=== PATIENT | female | born 1990 | race Caucasian/White ===

== ENCOUNTER 2017-02-20 21:15 | Emergency (ER) | payer BC, OTHER ==
[2017-02-20] MEDS ORDERED: SODIUM CHLORIDE 0.9% 1,000 ML IV STA (21:22)
[2017-02-20] MEDS ORDERED: ONDANSETRON 4 MG/2 ML VIAL IVP STA (21:23)
[2017-02-20 21:25] VITALS: RESP 18
--- NOTE | 2017-02-20 21:25 | ED ---
General Adult HPI - General Stated complaint: Seizure Time Seen by Provider: 02/20/17 21:15 Source: RN notes reviewed - History of Present Illness Initial comments: This is a 26-year-old female with past medical history significant for one seizure 8 years ago. According to the mother the patient got home from work and told her she wasn't feeling well and she went to lay down the couch and then she had a seizure that lasted about 30 seconds. Mom states it took a while for her to the back to her baseline which was when they were in route to the hospital. Patient currently states she has a mild headache she is also very nauseated. Patient states she knows she was feeling fine yesterday and feels otherwise fine today. Patient denies any recent fever chills or cough. Patient denies any chest pain palpitations difficulty breathing shortest breath. Patient denies any abdominal pain. Patient denies any actual vomiting or diarrhea. Patient denies any dysuria hematuria urinary frequency. Patient denies any excessive caffeine intake or energy drinks. Patient denies any illegal drug use. Patient states it's possible she is . - Related Data Home Medications Medication Instructions Recorded Confirmed No Known Home Medications [No 02/20/17 02/20/17 Known Home Medications] Allergies Allergy/AdvReac Type Severity Reaction Status Date / Time acetaminophen AdvReac Nausea & Verified 02/20/17 21:54 [From Tylenol-Codeine] Vomiting codeine AdvReac Nausea & Verified 02/20/17 21:54 [From Tylenol-Codeine] Vomiting Review of Systems ROS Statement: Those systems with pertinent positive or pertinent negative responses have been documented in the HPI. ROS Other: All systems not noted in ROS Statement are negative. General Exam - General Exam Comments Initial Comments: GENERAL: Patient is well-developed and well-nourished. Patient is nontoxic and well- hydrated and is in mild distress. ENT: Neck is soft and supple. No significant lymphadenopathy is noted. Oropharynx is clear. Moist mucous membranes. EYES: The sclera were anicteric and conjunctiva were pink and moist. Extraocular movements were intact and pupils were equal round and reactive to light. Eyelids were unremarkable. PULMONARY: Unlabored respirations. Good breath sounds bilaterally. No audible rales rhonchi or wheezing was noted. CARDIOVASCULAR: There is a regular rate and rhythm without any murmurs gallops or rubs. ABDOMEN: Soft and nontender with normal bowel sounds. No palpable organomegaly was noted. There is no palpable pulsatile mass. SKIN: Skin is clear with no lesions or rashes and otherwise unremarkable. NEUROLOGIC: Patient is alert and oriented x3. Cranial nerves II through XII are grossly intact. Motor and sensory are also intact. Normal speech, volume and content. Symmetrical smile. MUSCULOSKELETAL: Normal extremities with adequate strength and full range of motion. No lower extremity swelling or edema. No calf tenderness. LYMPHATICS: No significant lymphadenopathy is noted PSYCHIATRIC: Normal psychiatric evaluation. Normal interpersonal interactions appears functionally intact in deals appropriately with others. No signs of depression. Patient is mildly anxious Course Vital Signs 02/20/17 02/20/17 02/20/17 21:18 22:05 22:48 Temperature 99.0 F Pulse Rate 98 81 76 Respiratory 18 18 18 Rate Blood Pressure 123/71 117/73 114/70 O2 Sat by Pulse 97 100 97 Oximetry Medical Decision Making - Medical Decision Making EKG shows normal sinus rhythm at 80 bpm HI interval 160 QRS is 102 QT interval 386 QTC is 467 per patient's EKG shows no ST segment elevation or depression or T wave abnormalities are noted. CT of the brain shows no acute abnormality. - Lab Data Result diagrams: 02/20/17 21:30 02/20/17 21:30 Lab Results 02/20/17 02/20/17 02/20/17 Range/Units 21:30 21:30 22:05 WBC 4.7 (3.8-10.6) k/uL RBC 4.27 (3.80-5.40) m/uL Hgb 11.6 (11.4-16.0) gm/dL Hct 36.5 (34.0-46.0) % MCV 85.6 (80.0-100.0) fL MCH 27.3 (25.0-35.0) pg MCHC 31.9 (31.0-37.0) g/dL RDW 13.9 (11.5-15.5) % Plt Count 208 (150-450) k/uL Neutrophils % 54 % Lymphocytes % 38 % Monocytes % 5 % Eosinophils % 1 % Basophils % 1 % Neutrophils # 2.5 (1.3-7.7) k/uL Lymphocytes # 1.8 (1.0-4.8) k/uL Monocytes # 0.2 (0-1.0) k/uL Eosinophils # 0.1 (0-0.7) k/uL Basophils # 0.0 (0-0.2) k/uL Sodium 142 (137-145) mmol/L Potassium 3.8 (3.5-5.1) mmol/L Chloride 108 H (98-107) mmol/L Carbon Dioxide 23 (22-30) mmol/L Anion Gap 11 mmol/L BUN 11 (7-17) mg/dL Creatinine 0.70 (0.52-1.04) mg/dL Est GFR (MDRD) Af Amer >60 (>60 ml/min/1.73 sqM) Est GFR (MDRD) Non-Af >60 (>60 ml/min/1.73 sqM) Glucose 97 (74-99) mg/dL Calcium 8.8 (8.4-10.2) mg/dL Total Bilirubin 0.2 (0.2-1.3) mg/dL AST 17 (14-36) U/L ALT 28 (9-52) U/L Alkaline Phosphatase 63 (38-126) U/L Total Protein 6.7 (6.3-8.2) g/dL Albumin 3.9 (3.5-5.0) g/dL Urine Color Light Yellow Urine Appearance Clear (Clear) Urine pH 5.5 (5.0-8.0) Ur Specific [place] 1.013 (1.001-1.035) Urine Protein Negative (Negative) Urine Glucose (UA) Negative (Negative) Urine Ketones Trace H (Negative) Urine Blood Negative (Negative) Urine Nitrite Negative (Negative) Urine Bilirubin Negative (Negative) Urine Urobilinogen <2.0 (<2.0) mg/dL Ur Leukocyte Esterase Negative (Negative) Urine Opiates Screen Not Detected (NotDetected) Ur Oxycodone Screen Not Detected (NotDetected) Urine Methadone Screen Not Detected (NotDetected) Ur Propoxyphene Screen Not Detected (NotDetected) Ur Barbiturates Screen Not Detected (NotDetected) U Tricyclic Antidepress Not Detected (NotDetected) Ur Phencyclidine Scrn Not Detected (NotDetected) Ur Amphetamines Screen Not Detected (NotDetected) U Methamphetamines Scrn Not Detected (NotDetected) U Benzodiazepines Scrn Not Detected (NotDetected) Urine Cocaine Screen Not Detected (NotDetected) U Marijuana (THC) Screen Not Detected (NotDetected) Disposition Clinical Impression: Generalized seizure Disposition: HOME SELF-CARE Condition: Good Instructions: New-Onset Seizure in Adults (ED) Additional Instructions: Patient should follow-up with a neurologist as soon as possible Patient should not drive until cleared by a neurologist Referrals: Kem Khanna MD [Primary Care Provider] - 1-2 days Time of Disposition: 23:24
[2017-02-20 21:48] LABS: Basophils % (A) 1 %; CH 27.7; CHCM 32.5; Eosinophils # (A) 0.1 k/uL (0-0.7); Eosinophils % (A) 1 %; HCT 36.5 % (34.0-46.0); HDW 2.13; HGB 11.6 gm/dL (11.4-16.0); Luc # (Auto) 0.12; Luc % (Auto) 3; Lymphocytes # (A) 1.8 k/uL (1.0-4.8); Lymphocytes % (A) 38 %; MCH 27.3 pg (25.0-35.0); MCHC 31.9 g/dL (31.0-37.0); MCV 85.6 fL (80.0-100.0); Mean Platelet Volume 6.5; Monocytes # (A) 0.2 k/uL (0-1.0); Monocytes % (A) 5 %; Neutrophils # (A) 2.5 k/uL (1.3-7.7); Neutrophils % (A) 54 %; RBC 4.27 m/uL (3.80-5.40); RDW 13.9 % (11.5-15.5); WBC 4.7 k/uL (3.8-10.6); WBC (Perox) 4.81
[2017-02-20 21:59] LABS: ALT 28 U/L (9-52); AST 17 U/L (14-36); Alkaline Phosphatase 63 U/L (38-126); Anion Gap 11 mmol/L; Blood Urea Nitrogen 11 mg/dL (7-17); Calcium 8.8 mg/dL (8.4-10.2); Carbon Dioxide 23 mmol/L (22-30); Chloride 108 mmol/L (98-107); Glucose 97 mg/dL (74-99); Non-African American GFR(MDRD) >60 (>60 ml/min/1.73 sqM); Potassium 3.8 mmol/L (3.5-5.1); Sodium 142 mmol/L (137-145); Total Bilirubin 0.2 mg/dL (0.2-1.3); Total Protein 6.7 g/dL (6.3-8.2)
--- NOTE | 2017-02-20 22:18 | CT ---
EXAM: CT Head Without Intravenous Contrast CLINICAL HISTORY: Seizure TECHNIQUE: Axial computed tomography images of the head/brain without intravenous contrast. CTDI is 2.06, 2.05, 11.45 mGy and DLP is 946 mGy-cm. This CT exam was performed using one or more of the following dose reduction techniques: automated exposure control, adjustment of the mA and/or kV according to patient size, and/or use of iterative reconstruction technique. COMPARISON: No relevant prior studies available. FINDINGS: Brain: Unremarkable. No acute hemorrhage. Normal hart-white differentiation. No significant mass effect. Ventricles: Unremarkable. No ventriculomegaly. Bones/joints: Unremarkable. No acute fracture. Soft tissues: Unremarkable. Sinuses: Unremarkable as visualized. No acute sinusitis. Mastoid air cells: Unremarkable. IMPRESSION: No acute intracranial abnormality.
[2017-02-20 22:48] LABS: Appearance,Urine Clear (Clear); Bilirubin,Urine Negative (Negative); Glucose,Urine (UA) Negative (Negative); Ketones,Urine Trace (Negative); Leukocyte Esterase,Urine Negative (Negative); Nitrite,Urine Negative (Negative); PH, Urine 5.5 (5.0-8.0); Protein,Urine Negative (Negative); Specific Gravity,Urine 1.013 (1.001-1.035); UA Billing (MACRO vs. MICRO) CHEM; Urobilinogen,Urine <2.0 mg/dL (<2.0)
[2017-02-20] MEDS ORDERED: SODIUM CHLORIDE 0.9% 1,000 ML IV ONE (23:09)
[2017-02-20] MEDS ORDERED: SODIUM CHLORIDE 0.9% 500 ML IV ONE (23:09)
[2017-02-20 23:54] VITALS: BP 109/71; PULSE 73; TEMP 97.5
== END 2017-02-20 23:54 | disposition home or self-care (01) ==
LOC: EC 21:15
DX: G40.409 Other generalized epilepsy and epileptic syndromes, not intractable, without status epilepticus (principal); R11.0 Nausea; Z88.5 Allergy status to narcotic agent; Z88.6 Allergy status to analgesic agent
CPT/HCPCS: 36415; 93005; 80053; 85025; 81003; 81025; 80306; 70450; 99285; 96374; 96361 ×2; J2405

== ENCOUNTER 2022-12-27 05:59 | Inpatient (IN) | payer BC, OTHER ==
[2022-12-27] MEDS ORDERED: miSOPROStoL 200 MCG TAB PO PRN (06:30)
[2022-12-27] MEDS ORDERED: LACTATED RINGERS 1,000 ML IV SCH (06:30)
[2022-12-27] MEDS ORDERED: TRANEXAMIC ACID IN NACL,ISO-OS 1,000 MG in EMPTY BAG 1 BAG IV PRN (06:30)
[2022-12-27] MEDS ORDERED: OXYTOCIN 30 UNITS/500 ML NS 30 UNIT in SALINE 1 500ML.BAG IV SCH ×2 (06:30→14:15)
[2022-12-27] MEDS ORDERED: LIDOCAINE 0.5% (PF) 5 MG/ML (50 ML SDV) SQ PRN (06:30)
[2022-12-27] MEDS ORDERED: METHYLERGONOVINE 0.2 MG/ML 1 ML AMP IM PRN (06:30)
[2022-12-27] MEDS ORDERED: TERBUTALINE 1 MG/ML VIAL SQ PRN (06:30)
[2022-12-27] MEDS ORDERED: OXYTOCIN 10 UNIT/ML 1 ML VIAL IM PRN (06:30)
[2022-12-27] MEDS ORDERED: CARBOPROST TROMETHAMINE 250 MCG/ML 1 ML AMP IM PRN (06:30)
[2022-12-27 06:46] LABS: Anisocytosis Slight; Basophils % (A) 0 %; Eosinophils % (A) 0 %; HCT 29.2 % (34.0-46.0); HGB 8.8 gm/dL (11.4-16.0); Hypochromasia Marked; Lymphocytes # (A) 1.5 k/uL (1.0-4.8); Lymphocytes % (A) 25 %; MCV 66.7 fL (80.0-100.0); Mean Platelet Volume 6.8; Microcytosis Marked; Monocytes # (A) 0.3 k/uL (0-1.0); Monocytes % (A) 4 %; Neutrophils # (A) 3.9 k/uL (1.3-7.7); Neutrophils % (A) 68 %; Platelet Count 303 k/uL (150-450); Poikilocytosis Slight; RBC 4.38 m/uL (3.80-5.40); RDW 17.3 % (11.5-15.5); WBC 5.8 k/uL (3.8-10.6)
[2022-12-27] MEDS ORDERED: PENICILLIN G POTASSIUM 5,000,000 UNIT in DEXTROSE 5% IN WATER 100 ML IVPB STA ×2 (07:24)
--- NOTE | 2022-12-27 08:45 | P.HPOB ---
History of Present Illness H&P Date: 12/27/22 Chief Complaint: Elective induction of labor Ms. Lamar is a 32 year old at 39 weeks and 0 days with EDC of 01/03/2023 by 7 week who presents for elective induction of labor. is complicated by suspected LGA in the 92%ile at 36 weeks. This is also a short interval , with her last delivery in January of 2022. Obstetric history: 2 full term vaginal deliveries without complications, largest baby weighed 8 pounds 10 ounces. Maternal serologies: blood type O positive, antibody negative, rubella immune, VDRL non-reactive, HBsAg negative, HIV negative, 1 hour GTT 110, GBS positive. Past Medical History Past Medical History: Seizure Disorder Additional Past Medical History / Comment(s): 2017 One seizure. History of Any Multi-Drug Resistant Organisms: None Reported Additional Past Surgical History / Comment(s): Dental surgery Past Anesthesia/Blood Transfusion Reactions: No Reported Reaction Past Psychological History: No Psychological Hx Reported Smoking Status: Never smoker Past Alcohol Use History: Rare Past Drug Use History: None Reported - Past Family History Sister(s) Family Medical History: Diabetes Mellitus Medications and Allergies Home Medications Medication Instructions Recorded Confirmed Type No Known Home Medications 02/20/17 12/27/22 History Allergies Allergy/AdvReac Type Severity Reaction Status Date / Time codeine AdvReac Mild Nausea & Verified 12/27/22 06:30 [From Tylenol-Codeine] Vomiting acetaminophen AdvReac Nausea & Verified 02/20/17 21:54 [From Tylenol-Codeine] Vomiting Exam Vital Signs Temp Pulse Resp BP Pulse Ox 12/27/22 06:29 98.3 F 95 16 134/72 98 Intake and Output 12/26/22 12/27/22 12/27/22 22:59 06:59 14:59 Other: Weight 83.007 kg Focused physical exam is performed. This is a healthy-appearing multigravida in no apparent distress. Cervical exam is 5cm/70% effaced/-1 station. Category I heart tones. Results Result Diagrams: 12/27/22 06:25 Abnormal Lab Results - Last 24 Hours (Table) 12/27/22 Range/Units 06:25 Hgb 8.8 L (11.4-16.0) gm/dL Hct 29.2 L (34.0-46.0) % MCV 66.7 L (80.0-100.0) fL MCH 20.0 L (25.0-35.0) pg MCHC 30.0 L (31.0-37.0) g/dL RDW 17.3 H (11.5-15.5) % Assessment and Plan Assessment: 32 year old at 39 weeks and 0 days presenting for eIOL Plan: - Admit, oxytocin per protocol, PCN for GBS prophylaxis, mIVF, NPO, epidural prn. Time with Patient: Less than 30 (15 minutes)
[2022-12-27] MEDS ORDERED: PENICILLIN G POTASSIUM 2,500,000 UNIT in DEXTROSE 5% IN WATER 100 ML IVPB SCH ×2 (12:00)
[2022-12-27] MEDS ORDERED: diphenhydrAMINE 25 MG CAP PO PRN (14:02)
[2022-12-27] MEDS ORDERED: diphenhydrAMINE 50 MG CAP PO PRN (14:02)
[2022-12-27] MEDS ORDERED: HYDROCORTISONE 2.5% RECTAL CREAM 30 GM TUBE RECTAL PRN (14:02)
[2022-12-27] MEDS ORDERED: LANOLIN CREAM 5 GM TUBE TOPICAL PRN (14:02)
[2022-12-27] MEDS ORDERED: ACETAMINOPHEN TAB 325 MG TAB PO PRN (14:02)
[2022-12-27] MEDS ORDERED: SIMETHICONE 80 MG CHEWABLE PO PRN (14:02)
[2022-12-27] MEDS ORDERED: diphenhydrAMINE 50 MG/ML 1 ML VIAL IVP PRN ×2 (14:02)
[2022-12-27] MEDS ORDERED: ZOLPIDEM 5 MG TAB PO PRN (14:02)
[2022-12-27] MEDS ORDERED: BENZOCAINE/MENTHOL SPRAY 1 GM/SPRAY AEROSOL TOPICAL PRN (14:02)
--- NOTE | 2022-12-27 14:02 | P.PROBDLV ---
Vaginal Delivery Note - . Vaginal Delivery Note: DATE OF SERVICE: 12/27/2022 PROCEDURE: Normal Vaginal Delivery ATTENDING: Dr. Aniyah Murphy MD ESTIMATED BLOOD LOSS: 150 mL FINDINGS: VFI, Apgars 9/9, Weight 8 pounds and 14 ounces PROCEDURE: Patient was a 32 y/o at 39 weeks and 0 days who presented to labor and delivery for elective induction of labor. Oxytocin was started, penicillin was given for GBS prophylaxis. AROM was undertaken for clear fluid. The patient quickly progressed to complete dilation. Category I heart tones were noted throughout labor. The patient pushed once and head delivered without difficulty followed by shoulders and body over intact perineum. Infant placed on maternal abdomen and bulb suctioned. Cord was clamped and cut after a 30 second delay. Placenta delivered whole with gentle cord traction. Oxytocin was started to facilitate uterine tone. Uterine fundus firm and bleeding minimal upon fundal massage. Perineal inspection revealed a right-sided periurethral abrasion that was hemostatic, superficial, and did not require repair. Patient stable .
[2022-12-27] MEDS: IBUPROFEN 600 MG TAB PO PRN (14:41)
[2022-12-27] MEDS: SENNOSIDES-DOCUSATE SODIUM 1 EACH TAB PO SCH (19:39)
[2022-12-28 00:46] VITALS: RESP 16
[2022-12-28] MEDS: IBUPROFEN 600 MG TAB PO PRN (04:01)
[2022-12-28 06:09] LABS: Anisocytosis Slight; Basophils % (A) 0 %; Eosinophils % (A) 0 %; HCT 26.9 % (34.0-46.0); HGB 8.2 gm/dL (11.4-16.0); Hypochromasia Marked; Lymphocytes # (A) 1.8 k/uL (1.0-4.8); Lymphocytes % (A) 19 %; MCH 20.3 pg (25.0-35.0); MCHC 30.5 g/dL (31.0-37.0); MCV 66.7 fL (80.0-100.0); Microcytosis Marked; Monocytes # (A) 0.4 k/uL (0-1.0); Monocytes % (A) 4 %; Neutrophils # (A) 7.2 k/uL (1.3-7.7); Neutrophils % (A) 75 %; Platelet Count 290 k/uL (150-450); Poikilocytosis Slight; RBC 4.04 m/uL (3.80-5.40); RDW 17.1 % (11.5-15.5); WBC 9.6 k/uL (3.8-10.6)
--- NOTE | 2022-12-28 07:21 | P.PNOBGVD ---
Subjective - Subjective Principal diagnosis: s/p normal vaginal delivery Interval history: The patient is doing well this morning and had no acute events overnight. She has no complaints this morning. She reports minimal lochia, passing flatus, voiding without difficulty, ambulating, and eating/drinking without nausea or vomiting. She is her without difficulty. She denies chest pain, shortness of breathing, fevers, or chills overnight. She denies pain or swelling in the legs. Patient reports: Reports appetite normal, Reports voiding normally, Reports pain well controlled, Reports ambulating normally [place]: doing well, nursing well Objective - Latest Vital Signs Latest vital signs: Vital Signs Temp Pulse Resp BP Pulse Ox 12/28/22 00:00 97.9 F 70 16 115/70 98 12/27/22 20:00 98 F 87 18 119/77 98 12/27/22 15:55 97.8 F 62 17 120/74 12/27/22 14:55 71 17 117/74 12/27/22 14:40 54 L 17 119/72 12/27/22 14:25 77 17 130/68 12/27/22 14:10 77 17 143/74 12/27/22 13:55 98.8 F 80 17 131/66 Intake and Output 12/27/22 12/28/22 12/28/22 22:59 06:59 14:59 Output Total 130 Balance -130 Output: Output, Quantitative 130 Blood Loss Other: # Voids 1 - Exam Extremities: Present: normal Abdomen: Present: normal appearance, soft Uterus: Present: normal, firm - Labs Labs: Abnormal Lab Results - Last 24 Hours (Table) 12/28/22 Range/Units 05:33 Hgb 8.2 L (11.4-16.0) gm/dL Hct 26.9 L (34.0-46.0) % MCV 66.7 L (80.0-100.0) fL MCH 20.3 L (25.0-35.0) pg MCHC 30.5 L (31.0-37.0) g/dL RDW 17.1 H (11.5-15.5) % Assessment and Plan Assessment: 32 year old PPD#1 s/p normal vaginal delivery for viable female Plan: Patient meeting all milestones appropriately and desires discharge home today. Will discharge at 24 hours .
--- NOTE | 2022-12-28 07:24 | P.DS ---
Providers Date of admission: 12/27/22 05:59 Expected date of discharge: 12/28/22 Attending physician: Aniyah Murphy MD Primary care physician: Stated None Hospital Course: 32 year old now PPD#1 s/p normal vaginal delivery of viable female . She is meeting all milestones appropriately and had no acute events after delivery. She desires discharge home today. We discussed pelvic rest for 6 weeks . Her plans on having a vasectomy for contraception. I encouraged her to call the office for any heavy bleeding, foul-smelling vaginal discharge, breast complaints, fevers/chills, severe pain, or any other questions. She will return to the office in 6 weeks for her visit. All questions answered. Assessment: 32 yo now day #1 s/p normal vaginal delivery Patient Condition at Discharge: Good Plan - Discharge Summary Discharge Rx Participant: No New Discharge Prescriptions: No Action No Known Home Medications Discharge Medication List No Known Home Medications 02/20/17 [History] Follow up Appointment(s)/Referral(s): Aniyah Murphy MD [STAFF PHYSICIAN] - 6 Weeks Patient Instructions/Handouts: Your Baby (DC), and Nipple Soreness (DC), How to Increase Your Milk Supply (DC), How to Tell if Your Baby is Getting Enough Breast Milk (DC), Depression (DC), Perineal Care (DC), Bleeding (DC), Vaginal Delivery (DC) Activity/Diet/Wound Care/Special Instructions: Pelvic rest for 6 weeks. Otherwise, activity as tolerated. Discharge Disposition: HOME SELF-CARE
[2022-12-28 08:19] VITALS: BP 103/65; PULSE 72; TEMP 98.2
[2022-12-28] MEDS: SENNOSIDES-DOCUSATE SODIUM 1 EACH TAB PO SCH (12:27)
== END 2022-12-28 15:00 | disposition home or self-care (01) | DRG 807 ==
LOC: 4FBP 05:59
PROVIDERS: ADMIT Obstetrics & Gynecology; ATTEND Obstetrics & Gynecology
PROC: 10E0XZZ Delivery of Products of Conception, External Approach (ICD-10-PCS; principal; 2022-12-27)
PROC: 3E0DXGC Introduction of Other Therapeutic Substance into Mouth and Pharynx, External Approach (ICD-10-PCS; 2022-12-27)
PROC: 3E033VJ Introduction of Other Hormone into Peripheral Vein, Percutaneous Approach (ICD-10-PCS; 2022-12-27)
PROC: 10907ZC Drainage of Amniotic Fluid, Therapeutic from Products of Conception, Via Natural or Artificial Opening (ICD-10-PCS; 2022-12-27)
DX: O80 Encounter for full-term uncomplicated delivery (principal); Z37.0 Single live birth; Z3A.39 39 weeks gestation of pregnancy; Z28.310 Unvaccinated for COVID-19; Z86.69 Personal history of other diseases of the nervous system and sense organs; Z88.6 Allergy status to analgesic agent; Z88.5 Allergy status to narcotic agent
CPT/HCPCS: 85025; 86850; 86900; 86901

== ENCOUNTER 2024-07-12 18:19 | Inpatient (IN) | payer OTHER ==
[2024-07-12] MEDS ORDERED: LIDOCAINE 0.5% (PF) 5 MG/ML (50 ML SDV) SQ PRN (18:44)
[2024-07-12] MEDS ORDERED: TRANEXAMIC 1,000 MG/100ML-NACL 1,000 MG in EMPTY BAG 1 BAG IV PRN (18:44)
[2024-07-12] MEDS ORDERED: miSOPROStoL 200 MCG TAB RECTAL PRN (18:44)
[2024-07-12] MEDS ORDERED: miSOPROStoL 200 MCG TAB PO PRN (18:44)
[2024-07-12] MEDS ORDERED: TERBUTALINE 1 MG/ML VIAL SQ PRN (18:44)
[2024-07-12] MEDS ORDERED: OXYTOCIN 10 UNIT/ML 1 ML VIAL IM PRN (18:44)
[2024-07-12] MEDS ORDERED: CARBOPROST TROMETHAMINE 250 MCG/ML 1 ML AMP IM PRN (18:44)
[2024-07-12] MEDS ORDERED: METHYLERGONOVINE 0.2 MG/ML 1 ML AMP IM PRN (18:44)
[2024-07-12 19:12] LABS: Anisocytosis Moderate; Basophils % (A) 0 %; Eosinophils # (A) 0.1 k/uL (0-0.7); Eosinophils % (A) 1 %; HCT 34.8 % (34.0-46.0); HGB 10.7 gm/dL (11.4-16.0); Hypochromasia Moderate; Lymphocytes # (A) 1.4 k/uL (1.0-4.8); Lymphocytes % (A) 15 %; MCH 22.9 pg (25.0-35.0); MCHC 30.6 g/dL (31.0-37.0); MCV 74.8 fL (80.0-100.0); Mean Platelet Volume 7.8; Microcytosis Moderate; Monocytes # (A) 0.3 k/uL (0-1.0); Monocytes % (A) 3 %; Neutrophils # (A) 7.3 k/uL (1.3-7.7); Neutrophils % (A) 80 %; Platelet Count 250 k/uL (150-450); RBC 4.66 m/uL (3.80-5.40); WBC 9.2 k/uL (3.8-10.6)
[2024-07-12] MEDS: LACTATED RINGERS 1,000 ML IV SCH (19:20)
[2024-07-12] MEDS: OXYTOCIN 30 UNITS/500 ML NS 30 UNIT in SALINE 1 500ML.BAG IV SCH (20:00)
--- NOTE | 2024-07-12 21:36 | P.HPOB ---
History of Present Illness H&P Date: 07/12/24 Chief Complaint: 40-0/7 weeks, active labor Patient is a 34-year-old 4 para 3-0-0-3 admitted at 40-0/7 weeks as established by last menstrual period and confirmed by 11-week ultrasound. She is admitted in active labor with all signs reassuring, category 1 heart rate tracing. Her has been entirely uncomplicated and group B strep status is negative. Obstetrical history: 4 para 3-0-0-3 with 3 term vaginal deliveries without complications. Current statistics are listed in history of present illness. EDC of 07/12/2024 was established by last menstrual period and confirmed by 11-week ultrasound. Laboratory workup demonstrates a blood type of O+ with a negative antibody screen. Rubella status is immune. The remainder of the laboratory workup was within normal limits. Early Glucola as well as second trimester Glucola were within normal limits. Group B strep status is negative. Gynecologic history: Unremarkable with no history of any infections to include STDs. Review of Systems Review of systems is confined to history of present illness. Past Medical History Past Medical History: Seizure Disorder Additional Past Medical History / Comment(s): 2017 had a seizure, only time History of Any Multi-Drug Resistant Organisms: None Reported Additional Past Surgical History / Comment(s): oral surgery Past Anesthesia/Blood Transfusion Reactions: No Reported Reaction Smoking Status: Never smoker Past Alcohol Use History: None Reported Past Drug Use History: None Reported - Past Family History Father Family Medical History: Diabetes Mellitus, Hypertension Medications and Allergies Home Medications Medication Instructions Recorded Confirmed Type Ferrous Sulfate [Iron (65 MG 1 tab PO DAILY 07/03/24 07/12/24 History Elemental)] Vit No.179/Iron/Folic 1 tab PO DAILY 07/03/24 07/12/24 History [ Tablet] Allergies Allergy/AdvReac Type Severity Reaction Status Date / Time No Known Allergies Allergy Verified 07/12/24 18:27 Exam Vital Signs Temp Pulse Resp BP Pulse Ox 07/12/24 19:17 98.0 F 92 17 143/92 07/12/24 18:58 98.0 F 18 99 Intake and Output 07/12/24 07/12/24 07/12/24 06:59 14:59 22:59 Other: # Voids 2 Weight 88.904 kg In general, this is a well-developed, well-nourished white female in moderate discomfort as she is in active labor. Her heart has a regular rhythm and rate w ithout murmur. Her lungs are clear to auscultation bilateral in all mike. Her abdomen is gravid, nondistended, has normal active bowel sounds, soft, nontender, and without any palpable masses aside from the uterine fundus. Her extremities are without any cyanosis, clubbing, or edema and are nontender to palpation bilaterally. Digital cervical examination demonstrates her cervix to be approximately 8 cm dilated, 90% effaced, the vertex and presentation at -1-2 station. Artificial rupture of membranes is carried out demonstrating light to moderate meconium stained fluid. Results Result Diagrams: 07/12/24 19:02 Abnormal Lab Results - Last 24 Hours (Table) 07/12/24 Range/Units 19:02 Hgb 10.7 L (11.4-16.0) gm/dL MCV 74.8 L (80.0-100.0) fL MCH 22.9 L (25.0-35.0) pg MCHC 30.6 L (31.0-37.0) g/dL RDW 21.0 H (11.5-15.5) % Assessment and Plan (1) Meconium in amniotic fluid affecting management of mother Current Visit: No Status: Acute Code(s): O36.8990 - MATERNAL CARE FOR OTH PROBLEMS, UNSP TRIMESTER, UNSP SNOMED Code(s): 88622757 (2) Active labor at term Current Visit: No Status: Acute Code(s): DBP1098 - SNOMED Code(s): 45152046 Plan: The patient is admitted for active management of labor. She will continue to have close maternal and surveillance and expectant management will be practiced. She is a good candidate for either IV or epidural analgesia though she has declined both to this point.
[2024-07-12] MEDS ORDERED: LANOLIN CREAM 1 GM TUBE TOPICAL PRN (22:16)
[2024-07-12] MEDS ORDERED: ZOLPIDEM 5 MG TAB PO PRN (22:16)
[2024-07-12] MEDS ORDERED: diphenhydrAMINE 25 MG CAP PO PRN (22:16)
[2024-07-12] MEDS ORDERED: BENZOCAINE/MENTHOL SPRAY 1 GM/SPRAY AEROSOL TOPICAL PRN (22:16)
[2024-07-12] MEDS ORDERED: diphenhydrAMINE 50 MG/ML 1 ML VIAL IVP PRN ×2 (22:16)
[2024-07-12] MEDS ORDERED: SIMETHICONE 80 MG CHEWABLE PO PRN (22:16)
[2024-07-12] MEDS ORDERED: diphenhydrAMINE 50 MG CAP PO PRN (22:16)
[2024-07-12] MEDS ORDERED: HYDROCORTISONE 2.5% RECTAL CREAM 30 GM TUBE RECTAL PRN (22:16)
--- NOTE | 2024-07-12 22:21 | P.PROBDLV ---
Vaginal Delivery Note - . Vaginal Delivery Note: The patient is a 34-year-old 4 para 3-0-0-3 admitted at 40-0/7 weeks by good dating parameters. She is admitted in active labor with all signs reassuring, category 1 heart rate tracing. Her has been entirely uncomplicated and group B strep status is negative. On labor and delivery, she had Pitocin augmentation started and made fairly rapid progress through the active phase of labor after undergoing artificial rupture of membranes demonstrating lightly meconium stained fluid. She progressed to complete and pushed over the course of 1-2 contractions to a normal spontaneous vaginal delivery of a viable 8 pound 11 ounce baby girl with Apgars of 8 at 1 minute and 9 at 5 minutes delivered in the direct occiput anterior position. There was a loose nuchal cord x 1 which was reduced following delivery of the infant. The placenta was delivered spontaneously, intact, and grossly normal with a grossly normal but very long and centrally inserted three-vessel cord. There were no lacerations of the perineum, vagina, or cervix. Estimated blood loss for the case was approximately 100 mL or less. There were no complications. Both mother and infant are resting comfortably in recovery.
[2024-07-12] MEDS ORDERED: OXYTOCIN 30 UNITS/500 ML NS 30 UNIT in SALINE 1 500ML.BAG IV SCH (22:30)
[2024-07-12] MEDS: IBUPROFEN 800 MG TAB PO PRN (22:58)
[2024-07-13 07:12] LABS: Anisocytosis Moderate; Basophils % (A) 0 %; Eosinophils # (A) 0.1 k/uL (0-0.7); Eosinophils % (A) 1 %; HCT 30.4 % (34.0-46.0); HGB 9.5 gm/dL (11.4-16.0); Hypochromasia Moderate; Lymphocytes # (A) 1.9 k/uL (1.0-4.8); Lymphocytes % (A) 16 %; MCH 23.7 pg (25.0-35.0); MCHC 31.3 g/dL (31.0-37.0); MCV 75.6 fL (80.0-100.0); Mean Platelet Volume 8.3; Microcytosis Moderate; Monocytes # (A) 0.4 k/uL (0-1.0); Monocytes % (A) 4 %; Neutrophils % (A) 78 %; Platelet Count 233 k/uL (150-450); RBC 4.01 m/uL (3.80-5.40); RDW 21.2 % (11.5-15.5); WBC 11.6 k/uL (3.8-10.6)
[2024-07-13] MEDS: SENNOSIDES-DOCUSATE SODIUM 1 EACH TAB PO SCH (08:08)
--- NOTE | 2024-07-13 10:42 | P.PNOBGVD ---
Subjective - Subjective Patient reports: Reports appetite normal, Reports voiding normally, Reports pain well controlled, Reports ambulating normally : doing well, nursing well Objective - Latest Vital Signs Latest vital signs: Vital Signs Temp Pulse Pulse Resp BP Pulse Ox 07/13/24 08:00 98.6 F 67 16 99/60 98 07/13/24 04:00 98.2 F 78 16 106/68 99 07/13/24 00:10 97.2 F L 80 16 114/64 07/12/24 23:55 96.1 F L 66 16 117/65 07/12/24 23:40 78 16 120/69 07/12/24 23:25 60 16 124/72 07/12/24 23:10 67 16 118/73 07/12/24 22:55 70 18 116/62 07/12/24 22:40 76 17 120/61 07/12/24 22:25 77 17 118/61 07/12/24 22:10 97.7 F 81 17 131/78 07/12/24 19:17 98.0 F 92 17 143/92 07/12/24 18:58 98.0 F 18 99 Intake and Output 07/12/24 07/13/24 07/13/24 22:59 06:59 14:59 Intake Total 521.2 200 Output Total 100 335 Balance 421.2 -135 Intake: IV 350 Intake, IV Titration 171.2 Amount Oxytocin 30 Units/500 ml 171.2 Ns 30 unit In Saline 1 500ml.bag @ Per Protocol IV .Q0M [facility] Rx#:[id number] Oral 200 Output: Output, Quantitative 100 335 Blood Loss Other: # Voids 2 1 Weight 88.904 kg - Exam Extremities: Present: normal Abdomen: Present: normal appearance, soft Uterus: Present: normal, firm (The uterine fundus is tonic and minimally tender below the umbilicus.) - Labs Labs: Abnormal Lab Results - Last 24 Hours (Table) 07/12/24 07/13/24 Range/Units 19:02 06:58 WBC 11.6 H (3.8-10.6) k/uL Hgb 10.7 L 9.5 L (11.4-16.0) gm/dL Hct 30.4 L (34.0-46.0) % MCV 74.8 L 75.6 L (80.0-100.0) fL MCH 22.9 L 23.7 L (25.0-35.0) pg MCHC 30.6 L (31.0-37.0) g/dL RDW 21.0 H 21.2 H (11.5-15.5) % Neutrophils # 9.0 H (1.3-7.7) k/uL Assessment and Plan (1) Meconium in amniotic fluid affecting management of mother Current Visit: No Status: Acute Code(s): O36.8990 - MATERNAL CARE FOR OTH PROBLEMS, UNSP TRIMESTER, UNSP SNOMED Code(s): 91636152 (2) Active labor at term Current Visit: No Status: Acute Code(s): ISY0210 - SNOMED Code(s): 52936807 (3) Normal spontaneous vaginal delivery Current Visit: No Status: Acute Code(s): O80 - ENCOUNTER FOR FULL-TERM UNCOMPLICATED DELIVERY SNOMED Code(s): 75872319 Plan: Continue routine and postoperative care. I would anticipate discharg e home tomorrow pending no complications.
[2024-07-13] MEDS: ACETAMINOPHEN TAB 500 MG TAB PO PRN (16:51)
[2024-07-14 09:12] VITALS: BP 123/79; PULSE 73; RESP 20; TEMP 97.8
--- NOTE | 2024-07-14 11:18 | P.DS ---
Providers Date of admission: 07/12/24 18:46 Expected date of discharge: 07/14/24 Attending physician: Aniyah Murphy MD Primary care physician: Stated None - Discharge Diagnosis(es) (1) Active labor at term Current Visit: No Status: Acute (2) Meconium in amniotic fluid affecting management of mother Current Visit: No Status: Acute (3) Normal spontaneous vaginal delivery Current Visit: No Status: Acute Hospital Course: This is a 34-year-old 4 now para 4-0-0-4 the presented to labor and delivery at 40-0/7 weeks with complaints of regular painful contractions. She has been receiving routine care this been complicated by diagnosis of anemia. For full details in this patient please see the dictated history and physical. Her hemoglobin admission 10.7. Patient was admitted to labor and [facility] and progressed quickly through labor. Amniotomy was performed and thin meconium stained fluid was appreciated. Patient progressed to complete began pushing and had a normal spontaneous vaginal delivery of a viable female at 2156, weight of 8 pounds 11 ounces, Apgars of 8 and 9 at 1 and 5 minutes respectively. No lacerations were appreciated after delivery. Patient's course has been uneventful. Patient states she is ambulating and voiding without difficulty. She is tolerating a regular diet without nausea or vomiting. She states her pain is well-controlled. She denies concerns. She would like discharge home at 24 hours. Patient Condition at Discharge: Good Plan - Discharge Summary New Discharge Prescriptions: No Action Ferrous Sulfate [Iron (65 MG Elemental)] 1 tab PO DAILY Vit No.179/Iron/Folic [ Tablet] 1 tab PO DAILY Discharge Medication List Ferrous Sulfate [Iron (65 MG Elemental)] 1 tab PO DAILY 07/03/24 [History] Vit No.179/Iron/Folic [ Tablet] 1 tab PO DAILY 07/03/24 [History] Follow up Appointment(s)/Referral(s): Aniyah Murphy MD [STAFF PHYSICIAN] - 6 Weeks (6 Week follow up appt, 08/23/2024 1:30pm) Patient Instructions/Handouts: Vaginal Delivery (DC), Vaginal Delivery (GEN) Activity/Diet/Wound Care/Special Instructions: No tub baths or intercourse until 6 weeks . [id number] ibuprofen 600 mg or 3 tablets every 6 hours as needed for pain. Discharge Disposition: HOME SELF-CARE
--- NOTE | 2024-07-21 19:06 | CDI ---
Okay to use iron deficiency anemia. Documentation Clarification Form Date: 07/21/2024 06:57:42 PM From: Maryan Oliveira Phone: Admit Date: 07/12/2024 06:46:00 PM Patient Name: Claudia Brooks Visit Number: [id number] Discharge Date: 07/14/2024 12:05:00 PM ATTENTION: The Clinical Documentation Specialists (CDI) and [facility] Coding Staff appreciate your assistance in clarifying documentation. Please respond to the clarification below the line at the bottom and electronically sign. The CDI & [facility] Coding staff will review the response and follow-up if needed. Please note: Queries are made part of the Legal Health Record. If you have any questions, please contact the author of this message via ITS. Doctor/Provider: Tomer Lerma Unspecified anemia is documented per DC Summary. Additional specificity regarding the type of anemia is requested. History/Risk Factors: 34yo F, routine , anemia, Meconium in amniotic fluid, 40-0/7 weeks Home Medications: Ferrous Sulfate [Iron (65 MG 1 tab PO DAILY; Vit No.179/Iron/Folic 1 tab PO Clinical indicators: Hemoglobin: 07/12 10.7 07/13 9.5 Hematocrit: 07/13 30.4 Treatment: monitored Please clarify the type and acuity of anemia: [ ] Iron deficiency anemia [ ] Nutritional anemia [ ] Unable to determine [ ] Other, please specify (Template Last Revised: October 2020) MTDD
== END 2024-07-14 12:05 | disposition home or self-care (01) | DRG 560 ==
LOC: FBPOP 18:19 → MERGE 18:46 → 4FBP 18:46
PROVIDERS: ADMIT Obstetrics & Gynecology; ATTEND Obstetrics & Gynecology
PROC: 10E0XZZ Delivery of Products of Conception, External Approach (ICD-10-PCS; principal; 2024-07-12)
PROC: 10907ZC Drainage of Amniotic Fluid, Therapeutic from Products of Conception, Via Natural or Artificial Opening (ICD-10-PCS; 2024-07-12)
DX: O99.02 Anemia complicating childbirth (principal); Z37.0 Single live birth; D50.9 Iron deficiency anemia, unspecified; O77.0 Labor and delivery complicated by meconium in amniotic fluid; Z3A.40 40 weeks gestation of pregnancy; Z86.69 Personal history of other diseases of the nervous system and sense organs
CPT/HCPCS: 59025; 85025; 86850; 86900; 86901; 99213